=== PATIENT | male | born 1955 | race Caucasian/White ===

== ENCOUNTER 2020-04-30 09:07 | Day surgery (SDC) | payer BC ==
[2020-04-30] MEDS ORDERED: Midazolam 1 MG/ML 2 ML SDV IV ONE (09:08)
[2020-04-30] MEDS ORDERED: Propofol 200 MG/20 ML SDV IV ONE (09:08)
[2020-04-30] MEDS ORDERED: Sodium Chloride 0.9% 10 ML Syringe FLUSH PRN (09:15)
[2020-04-30] MEDS: Lactated Ringers 1,000 ML IV SCH (09:35)
[2020-04-30] MEDS ORDERED: Propofol 200 MG/20 ML SDV ONE (10:31)
[2020-04-30] MEDS ORDERED: Midazolam 1 MG/ML 2 ML SDV ONE (10:31)
--- NOTE | 2020-04-30 11:40 | PCM.PRNOTE ---
- Free Text/Narrative Note: PROCEDURE PERFORMED: Colonoscopy with biopsy PRE-PROCEDURE DIAGNOSIS/INDICATION FOR PROCEDURE: +Cologuard 03/29/20; last colonoscopy 11/08/09 normal CONSENT: Informed consent was obtained prior to the procedure after discussion of the risks (including pain, bleeding, infection, perforation, missed polyps, inability to completely remove polyps or complete procedure necessitating repeat colonoscopy, adverse reaction to anesthesia, cardiovascular event), benefits and alternatives and expected outcomes. The patient expressed understanding and wished to proceed. Verbal consent given and consent form signed. PROCEDURAL PAUSE: Completed SEDATION: Per anesthesia DESCRIPTION OF PROCEDURE: Patient was placed in the left lateral decubitus position. After adequate sedation and anesthetic was administered, a rectal exam was performed revealing no abnormalities. A lubricated Olympus Video Colonoscope was inserted into the rectum and air insufflation was performed. The colonoscope was advanced through the rectum, sigmoid, descending, transverse, and ascending colon without difficulties. The cecum was reached and the ileocecal valve as well as the appendiceal orifice were identified and pictorially documented. After adequate visualization of the cecum, the scope was withdrawn, giving 360-degree views of the colonic mucosa and retroflexion was performed in the rectum with the following findings noted: Ileocecal valve: Normal Cecum: Normal Ascending colon: Normal Hepatic flexure: Normal Transverse colon: Normal Splenic flexure: Normal Descending colon: Normal Sigmoid colon: Normal Rectum: 2.5cm pedunculated polyp with narrow stalk at 10cm removed with hot snare noting complete removal; resolution clip placed at site The scope was straightened, air suction performed, and the scope withdrawn without complication. Preparation adequacy [facility] Bowel Prep 12/17. IMPRESSION: Colonoscopy performed revealing one 2.5cm polyp at 10cm, pathology now pending. PLAN: Will contact the patient when pathology results received with recommendation for repeat colonoscopy.
== END 2020-04-30 12:40 | disposition home or self-care (01) ==
LOC: KA.SDS 09:07
PROVIDERS: ATTEND Family Medicine
DX: D12.8 Benign neoplasm of rectum (principal); K62.89 Other specified diseases of anus and rectum; E78.49 Other hyperlipidemia; I10 Essential (primary) hypertension; E66.9 Obesity, unspecified; E78.00 Pure hypercholesterolemia, unspecified; M54.12 Radiculopathy, cervical region; J34.2 Deviated nasal septum; Z68.31 Body mass index [BMI] 31.0-31.9, adult; Z79.899 Other long term (current) drug therapy; Z87.891 Personal history of nicotine dependence
CPT/HCPCS: 45385; J2250; J2704; J7120; 00812